=== PATIENT | female | born 1960 | race Caucasian/White ===

== ENCOUNTER → 2018-04-02 | Outpatient (CLI) | payer BC ==
--- NOTE | 2018-04-02 14:18 | US ---
EXAMINATION TYPE: US pelvic complete DATE OF EXAM: 04/02/2018 COMPARISON: NONE CLINICAL HISTORY: R10.2 PELVIC AND PERINEAL PAIN. Pt states pelvic fullness/bloating, family h/o ovar anabella CA (grandmother) TECHNIQUE: Transabdominal (TA). Transabdominal sonographic images of the pelvis were acquired. Date of LMP: 3 yrs ago EXAM MEASUREMENTS: Uterus: 8.1 x 2.6 x 5.0 cm Endometrial Stripe: 0.4 cm Right Ovary: 2.5 x 1.7 x 1.4 cm Left Ovary: 2.1 x 1.9 x 1.3 cm 1. Uterus: Anteverted wnl, 10mm Nabothian cyst in cervix 2. Endometrium: wnl 3. Right Ovary: wnl 4. Left Ovary: wnl 5. Bilateral Adnexa: wnl 6. Posterior cul-de-sac: wnl IMPRESSION: Unremarkable transabdominal pelvic ultrasound other than incidental note of a nabothian c yst.
== END | disposition home or self-care (01) ==
LOC: RADUSWWP 13:30
PROVIDERS: ATTEND Family Medicine
DX: N88.8 Other specified noninflammatory disorders of cervix uteri (principal)
CPT/HCPCS: 76856